=== PATIENT | male | born 1960 | race Caucasian/White ===

== ENCOUNTER → 2022-03-12 | Day surgery (SDC) | payer OTHER ==
[~2022-03-12] VITALS: Ht 180 cm; Wt 88.0 kg
[~2022-03-12] MED LIST: ADALAT CC90 MG PO; COZAAR50 MG PO; DUPIXENT300 MG/2 M SC; GLUCOSAMINE &1 EACH PO; SYNTHROID125 MCG PO; TENORMIN50 MG PO; VITAMIN D310 MC2 PO
[2022-03-12 09:29] LABS: HCT 44.3 % (42.0-52.0); HGB 15.2 g/dl (13.2-18.0); MCH 31.9 pg (25.0-31.0); MCHC 34.3 g/dL (32.0-36.0); MCV 93.1 fL (78.0-100.0); MPV 9.2 fL (6.0-9.5); RBC 4.76 M/uL (4.70-6.00); RDW 13.5 % (11.5-14.0)
[2022-03-12 09:51] LABS: ALBUMIN 3.9 g/dL (3.4-5.0); BILIRUBIN - TOTAL 0.6 mg/dL (0.2-1.0); BUN/CREAT RATIO (CALC) 14.4 RATIO; CREATININE 0.97 mg/dL (0.67-1.17); GLOBULIN (CALCULATION) 3.3 g/dL; POTASSIUM 4.6 mmol/L (3.5-5.1); TOTAL PROTEIN 7.2 g/dL (6.4-8.2)
== END | disposition home or self-care (01) ==
LOC: FAS 08:42
PROVIDERS: Surgery
DX: K20.90 Esophagitis, unspecified without bleeding (principal); K29.70 Gastritis, unspecified, without bleeding; J44.9 Chronic obstructive pulmonary disease, unspecified; I10 Essential (primary) hypertension; E03.9 Hypothyroidism, unspecified; F17.210 Nicotine dependence, cigarettes, uncomplicated; Z86.010 Personal history of colon polyps; Z79.899 Other long term (current) drug therapy; Z88.5 Allergy status to narcotic agent
CPT/HCPCS: 36415; 80053; J2250; J2704; J7120